=== PATIENT | female | born 2000 | race Caucasian/White ===

== ENCOUNTER 2022-07-20 12:08 | Emergency (ER) | payer OTHER ==
[~2022-07-20] VITALS: Ht 160 cm; Wt 69.0 kg
[2022-07-20 13:27] LABS: BASO # 0.1 10^3/uL (0.0-0.2); BASO % 0.4 % (0.0-1.0); EOS # 0.2 10^3/uL (0.0-0.5); EOS % 1.5 % (0.0-3.0); HEMATOCRIT 35.8 % (36.0-47.0); HEMOGLOBIN 11.6 g/dl (12.0-15.5); LYMPH # 2.7 10^3/uL (1.5-5.0); LYMPH % 24.2 % (24.0-44.0); MEAN CORPUSCULAR HEMOGLOBIN 28.9 pg (27.0-33.0); MEAN CORPUSCULAR HGB CONC 32.4 g/dl (32.0-36.5); MEAN CORPUSCULAR VOLUME 89.1 fl (80.0-96.0); MONO # 0.9 10^3/uL (0.0-0.8); MONO % 8.4 % (2.0-8.0); NEUTROPHILS # 7.3 10^3/uL (1.5-8.5); NEUTROPHILS % 65.2 % (36.0-66.0); PLATELET COUNT, AUTOMATED 233 10^3/uL (150-450); RED BLOOD COUNT 4.02 10^6/uL (4.00-5.40); WHITE BLOOD COUNT 11.2 10^3/uL (4.0-10.0)
[2022-07-20 13:51] LABS: BLOOD UREA NITROGEN 6 MG/DL (9-23); CALCIUM LEVEL 8.9 MG/DL (8.5-10.1); CARBON DIOXIDE LEVEL 22 MMOL/L (20-31); CHLORIDE LEVEL 107 MMOL/L (98-107); GLOMERULAR FILTRATION RATE > 60.0 (>60); GLUCOSE, FASTING 69 MG/DL (60-100); POTASSIUM SERUM 4.4 MMOL/L (3.5-5.1); SODIUM LEVEL 139 MMOL/L (136-145)
[2022-07-20 14:05] LABS: HCG, SERUM QUANTITATIVE 76183.8 MIU/ML (<4.2)
[2022-07-20 15:34] VITALS: BP 116/55
== END 2022-07-20 16:10 | disposition home or self-care (01) ==
LOC: M ED 12:08
DX: O26.891 Other specified pregnancy related conditions, first trimester (principal); N89.9 Noninflammatory disorder of vagina, unspecified; Z3A.11 11 weeks gestation of pregnancy

== ENCOUNTER → 2022-09-10 | Outpatient (CLI) | payer OTHER | LOC: M WHC 09:05 | PROVIDERS: ATTEND Registered Nurse | DX: Z36.3 Encounter for antenatal screening for malformations (principal); Z3A.19 19 weeks gestation of pregnancy ==

== ENCOUNTER 2022-09-18 20:40 | Emergency (ER) | payer OTHER ==
[~2022-09-18] VITALS: Ht 160 cm; Wt 73.1 kg
[2022-09-18 20:42] VITALS: BP 116/60
[2022-09-18 21:32] LABS: APPEARANCE, URINE CLEAR (CLEAR); BILIRUBIN, URINE AUTO NEGATIVE (NEGATIVE); BLOOD, URINE BLOOD NEGATIVE (NEGATIVE); COLOR, URINE STRAW (YELLOW); GLUCOSE, URINE (UA) AUTO NEGATIVE (NEGATIVE); KETONE, URINE AUTO NEGATIVE (NEGATIVE); LEUKOCYTE ESTERASE, URINE AUTO NEGATIVE (NEGATIVE); NITRITE, URINE AUTO NEGATIVE (NEGATIVE); PROTEIN, URINE AUTO NEGATIVE (NEGATIVE); SPECIFIC GRAVITY URINE AUTO 1.003 (1.002-1.035); UROBILINOGEN, URINE AUTO 0.2 mg/dL (0.0-2.0)
[2022-09-18 21:33] LABS: BACTERIA, URINE AUTO NEGATIVE (NEGATIVE); RBC, URINE AUTO 0 /HPF (0-3); SQUAMOUS EPITHELIAL CELL UR AU 1 /HPF (0-6); WBC, URINE AUTO 0 /HPF (0-3)
== END 2022-09-19 02:22 | disposition left against medical advice (07) ==
LOC: M ED 20:40
DX: Z53.21 Procedure and treatment not carried out due to patient leaving prior to being seen by health care provider (principal)

== ENCOUNTER 2022-10-31 20:22 | Outpatient (CLI) | payer OTHER ==
[~2022-10-31] VITALS: Ht 162.6 cm; Wt 78.7 kg
[2022-10-31 20:43] VITALS: BP 120/66
== END 2022-10-31 21:46 | disposition home or self-care (01) ==
LOC: M LDO 20:22
PROVIDERS: ATTEND Obstetrics & Gynecology
DX: O26.892 Other specified pregnancy related conditions, second trimester (principal); R07.81 Pleurodynia; Z3A.26 26 weeks gestation of pregnancy
CPT/HCPCS: 59025; G0463

== ENCOUNTER 2022-11-25 10:00 | Outpatient (CLI) | payer OTHER ==
[~2022-11-25] VITALS: Ht 160 cm; Wt 80.7 kg
[2022-11-25] MEDS ORDERED: DICY20TA20 PO (10:17)
[2022-11-25] MEDS ORDERED: PRENTAB9 PO (10:17)
[2022-11-25] MEDS ORDERED: HOME MED LIST COMPLETE! XX SCH (10:20)
[2022-11-25 10:23] VITALS: BP 114/60
[2022-11-25] MEDS ORDERED: LR 1,000 ML IV ONE (11:00)
[2022-11-25 11:38] LABS: HEMATOCRIT 34.4 % (36.0-47.0); HEMOGLOBIN 10.8 g/dl (12.0-15.5); MEAN CORPUSCULAR HEMOGLOBIN 28.3 pg (27.0-33.0); MEAN CORPUSCULAR HGB CONC 31.4 g/dl (32.0-36.5); MEAN CORPUSCULAR VOLUME 90.1 fl (80.0-96.0); PLATELET COUNT, AUTOMATED 238 10^3/uL (150-450); RED BLOOD COUNT 3.82 10^6/uL (4.00-5.40); WHITE BLOOD COUNT 13.8 10^3/uL (4.0-10.0)
[2022-11-25] MEDS ORDERED: FLUCONAZOLE 50MG TABLET PO ONE (11:55)
[2022-11-25 12:05] LABS: ALBUMIN 2.9 G/DL (3.2-5.2); ALKALINE PHOSPHATASE 113 U/L (46-116); ALT/SGPT 13 U/L (7.0-40); AST/SGOT 19 U/L (<34); BILIRUBIN,TOTAL 0.4 MG/DL (0.3-1.2); BLOOD UREA NITROGEN < 5 MG/DL (9-23); CALCIUM LEVEL 8.2 MG/DL (8.5-10.1); CARBON DIOXIDE LEVEL 23 MMOL/L (20-31); CHLORIDE LEVEL 107 MMOL/L (98-107); CREATININE FOR GFR 0.38 MG/DL (0.55-1.30); GLOMERULAR FILTRATION RATE > 60.0 (>60); GLUCOSE, FASTING 73 MG/DL (60-100); POTASSIUM SERUM 3.9 MMOL/L (3.5-5.1); SODIUM LEVEL 138 MMOL/L (136-145); TOTAL PROTEIN 6.2 G/DL (5.7-8.2)
[2022-11-25 12:14] LABS: APPEARANCE, URINE CLEAR (CLEAR); BACTERIA, URINE AUTO NEGATIVE (NEGATIVE); BILIRUBIN, URINE AUTO NEGATIVE (NEGATIVE); BLOOD, URINE BLOOD NEGATIVE (NEGATIVE); COLOR, URINE STRAW (YELLOW); GLUCOSE, URINE (UA) AUTO NEGATIVE (NEGATIVE); KETONE, URINE AUTO 1+ mg/dL (NEGATIVE); LEUKOCYTE ESTERASE, URINE AUTO NEGATIVE (NEGATIVE); NITRITE, URINE AUTO NEGATIVE (NEGATIVE); PROTEIN, URINE AUTO NEGATIVE (NEGATIVE); RBC, URINE AUTO 0 /HPF (0-3); SPECIFIC GRAVITY URINE AUTO 1.004 (1.002-1.035); SQUAMOUS EPITHELIAL CELL UR AU 0 /HPF (0-6); UROBILINOGEN, URINE AUTO 0.2 mg/dL (0.0-2.0); WBC, URINE AUTO 0 /HPF (0-3)
[2022-11-25 13:36] LABS: GC DNA AMPLIFICATION NEGATIVE (NEGATIVE)
== END 2022-11-25 12:38 | disposition home or self-care (01) ==
LOC: M LDO 10:00
PROVIDERS: ATTEND Obstetrics & Gynecology
DX: O23.593 Infection of other part of genital tract in pregnancy, third trimester (principal); Z3A.30 30 weeks gestation of pregnancy; Z88.2 Allergy status to sulfonamides; Z91.018 Allergy to other foods
CPT/HCPCS: 59025; 80053; 81001; 85027; 87810; 87850; G0463

== ENCOUNTER 2022-12-29 09:55 | Outpatient (CLI) | payer OTHER ==
[~2022-12-29] VITALS: Ht 160 cm; Wt 82.7 kg
[~2022-12-29 09:55] MED LIST: DICY20TA20 PO; PRENTAB9 PO
[2022-12-29] MEDS ORDERED: ACET325C5 PO (10:11)
[2022-12-29 10:15] VITALS: BP 115/65
[2022-12-29] MEDS ORDERED: HOME MED LIST COMPLETE! XX SCH (10:15)
[2022-12-29] MEDS ORDERED: LR 1,000 ML IV ONE (11:00)
[2022-12-29] MEDS ORDERED: ONDANSETRON 4MG 2ML VIAL IV ONE (11:00)
[2022-12-29 11:24] LABS: BASO # 0.1 10^3/uL (0.0-0.2); BASO % 0.3 % (0.0-1.0); EOS % 0.2 % (0.0-3.0); HEMOGLOBIN 10.4 g/dl (12.0-15.5); LYMPH # 2.3 10^3/uL (1.5-5.0); LYMPH % 15.7 % (24.0-44.0); MEAN CORPUSCULAR HEMOGLOBIN 27.1 pg (27.0-33.0); MEAN CORPUSCULAR HGB CONC 31.5 g/dl (32.0-36.5); MEAN CORPUSCULAR VOLUME 85.9 fl (80.0-96.0); MONO % 6.8 % (2.0-8.0); NEUTROPHILS # 11.1 10^3/uL (1.5-8.5); NEUTROPHILS % 76.2 % (36.0-66.0); PLATELET COUNT, AUTOMATED 226 10^3/uL (150-450); RED BLOOD COUNT 3.84 10^6/uL (4.00-5.40); WHITE BLOOD COUNT 14.6 10^3/uL (4.0-10.0)
[2022-12-29 11:28] VITALS: BP 120/69
[2022-12-29 12:00] LABS: ALBUMIN 2.7 G/DL (3.2-5.2); ALKALINE PHOSPHATASE 144 U/L (46-116); ALT/SGPT 9 U/L (7.0-40); AST/SGOT 16 U/L (<34); BILIRUBIN,TOTAL 0.5 MG/DL (0.3-1.2); BLOOD UREA NITROGEN < 5 MG/DL (9-23); CALCIUM LEVEL 7.9 MG/DL (8.5-10.1); CARBON DIOXIDE LEVEL 24 MMOL/L (20-31); CHLORIDE LEVEL 106 MMOL/L (98-107); CREATININE FOR GFR 0.43 MG/DL (0.55-1.30); GLOMERULAR FILTRATION RATE > 60.0 (>60); GLUCOSE, FASTING 74 MG/DL (60-100); SODIUM LEVEL 138 MMOL/L (136-145); TOTAL PROTEIN 5.6 G/DL (5.7-8.2)
[2022-12-29 13:40] VITALS: BP 118/62
== END 2022-12-29 13:55 | disposition home or self-care (01) ==
LOC: M LDO 09:55
PROVIDERS: ATTEND Obstetrics & Gynecology
DX: O99.613 Diseases of the digestive system complicating pregnancy, third trimester (principal); K58.0 Irritable bowel syndrome with diarrhea; O99.013 Anemia complicating pregnancy, third trimester; D64.9 Anemia, unspecified; Z3A.34 34 weeks gestation of pregnancy
CPT/HCPCS: 36415; 59025; 80053; 85025; 96361; 96374; G0463; J2405

== ENCOUNTER 2023-01-21 09:02 | Outpatient (CLI) | payer OTHER ==
[~2023-01-21] VITALS: Ht 160 cm; Wt 83.7 kg
[~2023-01-21 09:02] MED LIST changes: +ACET325C5 PO; +ALBUTEROL SULFATE 2.5MG/0.5ML INH NEB SOLN INH PRN; +EPINEPHrine INJ 1 MG/ML 1ML AMP IM PRN; +diphenhydrAMINE 50MG/ML VIAL IV PRN; +methylPREDNISolone 125MG 2ML VIAL IV PRN
[2023-01-21 09:15] VITALS: BP 121/61; O2SAT 96
[2023-01-21] MEDS ORDERED: IRON SUCROSE 300 MG in NS 250 ML OVER 90 MIN. IV ONE (09:30)
[2023-01-21] MEDS ORDERED: NS 1,000 ML IV SCH (09:30)
[2023-01-21 11:15] VITALS: BP 123/60; O2SAT 97
== END 2023-01-21 11:30 | disposition home or self-care (01) ==
LOC: M INFU 09:02
PROVIDERS: ATTEND Obstetrics & Gynecology
DX: O99.013 Anemia complicating pregnancy, third trimester (principal); F50.89 Other specified eating disorder; Z3A.36 36 weeks gestation of pregnancy; Z88.2 Allergy status to sulfonamides
CPT/HCPCS: 96365; J1756

== ENCOUNTER 2023-01-28 09:48 | Outpatient (CLI) | payer OTHER ==
[~2023-01-28] VITALS: Ht 160 cm; Wt 83.7 kg
[2023-01-28] MEDS ORDERED: IRON SUCROSE 300 MG in NS 250 ML OVER 90 MIN. IV ONE (10:00)
[2023-01-28] MEDS ORDERED: NS 1,000 ML IV SCH (10:00)
[2023-01-28 10:08] VITALS: BP 121/65; O2SAT 97
== END 2023-01-28 11:50 ==
LOC: M INFU 09:48
PROVIDERS: ATTEND Obstetrics & Gynecology
DX: O99.013 Anemia complicating pregnancy, third trimester (principal); O99.343 Other mental disorders complicating pregnancy, third trimester; Z3A.36 36 weeks gestation of pregnancy; Z88.2 Allergy status to sulfonamides
CPT/HCPCS: 96365; 96366; J1756

== ENCOUNTER 2023-01-29 01:35 | Inpatient (IN) | payer OTHER ==
[~2023-01-29] VITALS: Ht 160 cm; Wt 85.0 kg
[2023-01-29] VITALS (31 sets, daily range): BP systolic 89–140; BP diastolic 52–84; TEMP 98.4; O2SAT 94–99
[~2023-01-29 01:35] MED LIST changes: -ALBUTEROL SULFATE 2.5MG/0.5ML INH NEB SOLN INH PRN; -EPINEPHrine INJ 1 MG/ML 1ML AMP IM PRN; -diphenhydrAMINE 50MG/ML VIAL IV PRN; -methylPREDNISolone 125MG 2ML VIAL IV PRN
[2023-01-29] MEDS ORDERED: LR 1,000 ML IV SCH ×2 (02:05→17:35)
[2023-01-29] MEDS ORDERED: LR 1,000 ML IV ONE (02:05)
[2023-01-29] MEDS ORDERED: PENICILLIN G POTASSIUM 5 MU IV 5 MU in D5W MINI-BAG PLUS 100 ML IV STA (02:10)
[2023-01-29] MEDS ORDERED: LIDOCAINE 1% MDV 20ML VIAL INFIL PRN (02:20)
[2023-01-29] MEDS ORDERED: OXYTOCIN DRIP 30 UNITS in IV 1 EA IV PRN ×5 (02:20→15:10)
[2023-01-29] MEDS ORDERED: TRANEXAMIC ACID INJection 1,000 MG in NS 100 ML IV PRN ×2 (02:20→15:10)
[2023-01-29] MEDS ORDERED: METHYLERGONOVINE MALEATE 0.2MG/ML 1ML VIAL IM PRN (02:20)
[2023-01-29 02:23] LABS: HEMATOCRIT 35.3 % (36.0-47.0); HEMOGLOBIN 11.2 g/dl (12.0-15.5); MEAN CORPUSCULAR HEMOGLOBIN 26.5 pg (27.0-33.0); MEAN CORPUSCULAR HGB CONC 31.7 g/dl (32.0-36.5); MEAN CORPUSCULAR VOLUME 83.5 fl (80.0-96.0); PLATELET COUNT, AUTOMATED 256 10^3/uL (150-450); RED BLOOD COUNT 4.23 10^6/uL (4.00-5.40); WHITE BLOOD COUNT 13.9 10^3/uL (4.0-10.0)
[2023-01-29] MEDS ORDERED: NALOXONE INJ 0.4MG/1ML VIAL IV PRN ×3 (03:05→17:35)
[2023-01-29] MEDS ORDERED: FENTANYL/ROPIVACAINE/NACL BAG 100 ML EPIDURAL SCH (03:05)
[2023-01-29] MEDS ORDERED: ONDANSETRON 4MG 2ML VIAL IV PRN ×2 (03:05→17:35)
[2023-01-29] MEDS ORDERED: ePHEDrine SULFATE 25 MG/5 ML(5MG/ML) SYRINGE IVP PRN (03:05)
[2023-01-29] MEDS ORDERED: LR 500 ML IV PRN (03:05)
[2023-01-29] MEDS ORDERED: diphenhydrAMINE 50MG/ML VIAL IV PRN ×2 (03:05→17:35)
[2023-01-29] MEDS ORDERED: EPIDURAL/PCA KEYS XX PRN (03:05)
[2023-01-29] MEDS: LR 1,000 ML IV SCH ×3 (03:14→13:21)
[2023-01-29] MEDS: PEN G POT 3,000,000 UNIT/50 ML 3,000,000 UNIT in IV 1 EA IV SCH ×2 (06:23→10:25)
[2023-01-29] MEDS ORDERED: HOME MED LIST COMPLETE! XX SCH (11:45)
[2023-01-29] MEDS ORDERED: OXYTOCIN DRIP 30 UNITS in IV 1 EA IV SCH (13:00)
[2023-01-29] MEDS ORDERED: LIDOCAINE 2% W/EPINEPHRINE 20ML VIAL **PRES FREE As Ordered ONE (15:07)
[2023-01-29] MEDS ORDERED: OXYTOCIN 30UNITS IN 0.9% NaCl 500ML IV BAG As Ordered ONE ×2 (15:07→16:04)
[2023-01-29] MEDS ORDERED: MORPHINE PRES-FREE INJ 10 MG/10 ML VIAL As Ordered ONE (15:07)
[2023-01-29] MEDS ORDERED: LACTATED RINGER'S 1000 ML IV STA (15:07)
[2023-01-29] MEDS ORDERED: BICITRA 30ML SOLN UDC PO ONE (15:10)
[2023-01-29] MEDS ORDERED: CARBOPROST TROMETHAMINE 250 MCG/ML AMP IM PRN (15:10)
[2023-01-29] MEDS ORDERED: ceFAZolin SOD 2 GM in IV 1 EA IV ONE (15:10)
[2023-01-29] MEDS ORDERED: AZITHROMYCIN INJ 500 MG, VIAL MATE ADAPTER 1 EACH in NS 250 ML IV ONE (15:10)
[2023-01-29] MEDS ORDERED: KETAMINE HCL 200MG/20ML VIAL As Ordered ONE (15:41)
[2023-01-29] MEDS ORDERED: MIDAZOLAM INJ 2MG/2ML VIAL As Ordered ONE (15:42)
[2023-01-29] MEDS ORDERED: fentaNYL 100 MCG/2 ML INJECTION As Ordered ONE (15:42)
[2023-01-29] MEDS ORDERED: ONDANSETRON 4MG 2ML VIAL As Ordered ONE (15:46)
[2023-01-29] MEDS ORDERED: OXYTOCIN INJ 10UNITS/ML 1ML VIAL As Ordered ONE (15:50)
[2023-01-29] MEDS ORDERED: PHENYLephrine 500MCG 5ML (100MCG/ML) SYRINGE As Ordered ONE (15:54)
[2023-01-29] MEDS ORDERED: ACETAMINOPHEN 1000MG 100ML IV BAG As Ordered ONE (15:56)
[2023-01-29 15:59] LABS: CORD GAS ABE A -2.3; CORD GAS ABE V -4.1; CORD GAS HCO3 A 25.3 MMOL/L; CORD GAS HCO3 V 20.9 MMOL/L; CORD GAS O2 SAT A 32.4 %; CORD GAS O2 SAT V 90.9 %; CORD GAS PCO2 A 53.9 mmHg; CORD GAS PCO2 V 38.5 mmHg; CORD GAS PH A 7.29 UNITS; CORD GAS PH V 7.353 UNITS; CORD GAS PO2 A 16.2 mmHg; CORD GAS PO2 V 45.2 mmHg; CORD GAS SBC A 20.9 MMOL/L; CORD GAS TCO2 V 22.1 MMOL/L
[2023-01-29] MEDS ORDERED: METHYLERGONOVINE MALEATE 0.2MG/ML 1ML VIAL ONE (16:51)
[2023-01-29] MEDS ORDERED: RHOGAM 300MCG (1500IU) INJ IM SCH (17:10)
[2023-01-29] MEDS ORDERED: ACETAMINOPHEN 500 MG TAB PO PRN (17:10)
[2023-01-29] MEDS ORDERED: ANUSOL HC CREAM 30GM TOP PRN (17:10)
[2023-01-29] MEDS ORDERED: MORPHINE 2 MG/ML 1ML VIAL IV PRN (17:10)
[2023-01-29] MEDS ORDERED: SIMETHICONE 80MG CHEW TAB PO PRN (17:10)
[2023-01-29] MEDS ORDERED: METHYLERGONOVINE MALEATE 0.2 MG TAB PO PRN (17:10)
[2023-01-29] MEDS ORDERED: oxyCODONE 5MG TAB PO PRN ×3 (17:10→17:35)
[2023-01-29] MEDS: SLF 3 ML SYR IV SCH (17:35)
[2023-01-29] MEDS ORDERED: **NOTE PATIENT COMMENT** MISC XX SCH (17:35)
[2023-01-29] MEDS ORDERED: METOCLOPRAMIDE INJ 10MG/2ML VIAL IV PRN ×2 (17:35)
[2023-01-29] MEDS ORDERED: fentaNYL 100 MCG/2 ML INJECTION IV PRN (17:35)
[2023-01-29] MEDS ORDERED: KETOROLAC 30 MG/ML 1ML VIAL As Ordered ONE (17:53)
[2023-01-29] MEDS: KETOROLAC 30 MG/ML 1ML VIAL IV SCH ×2 (18:00→23:45)
[2023-01-29 20:40] LABS: BASO # 0.1 10^3/uL (0.0-0.2); BASO % 0.2 % (0.0-1.0); HEMATOCRIT 30.7 % (36.0-47.0); HEMOGLOBIN 9.9 g/dl (12.0-15.5); LYMPH % 3.2 % (24.0-44.0); MEAN CORPUSCULAR HGB CONC 32.2 g/dl (32.0-36.5); MEAN CORPUSCULAR VOLUME 83.9 fl (80.0-96.0); MONO # 1.5 10^3/uL (0.0-0.8); NEUTROPHILS # 27.2 10^3/uL (1.5-8.5); NEUTROPHILS % 90.9 % (36.0-66.0); PLATELET COUNT, AUTOMATED 208 10^3/uL (150-450); RED BLOOD COUNT 3.66 10^6/uL (4.00-5.40); WHITE BLOOD COUNT 29.9 10^3/uL (4.0-10.0)
[2023-01-29] MEDS: DOCUSATE SODIUM 100MG CAPSULE PO SCH (20:47)
[2023-01-30] MEDS: SLF 3 ML SYR IV SCH ×2 (00:39→09:35)
[2023-01-30 02:00] VITALS: BP 103/53; O2SAT 96
[2023-01-30] MEDS: KETOROLAC 30 MG/ML 1ML VIAL IV SCH ×2 (05:50→12:11)
[2023-01-30] MEDS: LR 1,000 ML IV SCH (05:50)
[2023-01-30 06:00] VITALS: BP 99/53; O2SAT 96
[2023-01-30 06:52] LABS: HEMATOCRIT 27.6 % (36.0-47.0); HEMOGLOBIN 8.8 g/dl (12.0-15.5); MEAN CORPUSCULAR HEMOGLOBIN 26.8 pg (27.0-33.0); MEAN CORPUSCULAR HGB CONC 31.9 g/dl (32.0-36.5); MEAN CORPUSCULAR VOLUME 84.1 fl (80.0-96.0); PLATELET COUNT, AUTOMATED 200 10^3/uL (150-450); RED BLOOD COUNT 3.28 10^6/uL (4.00-5.40); WHITE BLOOD COUNT 23.1 10^3/uL (4.0-10.0)
[2023-01-30] MEDS: PRENATAL VITAMINS CHEWABLE TABLET PO SCH (08:46)
[2023-01-30] MEDS: DOCUSATE SODIUM 100MG CAPSULE PO SCH ×2 (08:46→19:58)
[2023-01-30 10:00] VITALS: BP 96/52; O2SAT 100
[2023-01-30] MEDS: ENOXAPARIN 40MG/0.4ML SYRINGE (J1650 PER 10MG) SC SCH (11:04)
[2023-01-30 14:00] VITALS: BP 109/59; O2SAT 96
[2023-01-30 18:00] VITALS: BP 118/61; O2SAT 100
[2023-01-30] MEDS: IBUPROFEN 800 MG TAB PO SCH (19:59)
[2023-01-30 22:00] VITALS: BP 120/59; O2SAT 98
[2023-01-31 02:00] VITALS: BP 109/56; O2SAT 99
[2023-01-31] MEDS: IBUPROFEN 800 MG TAB PO SCH (03:34)
[2023-01-31 06:00] VITALS: BP 105/55; O2SAT 97
[2023-01-31] MEDS ORDERED: MEASLES,MUMPS,RUBELLA VACCINE INJ (MMR-II) SC.IMMUN ONE (09:00)
[2023-01-31] MEDS: ENOXAPARIN 40MG/0.4ML SYRINGE (J1650 PER 10MG) SC SCH (09:29)
[2023-01-31] MEDS: PRENATAL VITAMINS CHEWABLE TABLET PO SCH (09:29)
[2023-01-31] MEDS: DOCUSATE SODIUM 100MG CAPSULE PO SCH (09:29)
[2023-01-31 09:56] VITALS: BP 109/60; O2SAT 95
== END 2023-01-31 11:13 | disposition home or self-care (01) | DRG 773 ==
LOC: M LDO 01:35 → M LDI 02:18 → M OBS 18:36
PROVIDERS: ADMIT Obstetrics & Gynecology; ATTEND Obstetrics & Gynecology
PROC: 10D00Z1 Extraction of Products of Conception, Low, Open Approach (ICD-10-PCS; principal; 2023-01-29 16:00)
DX: O99.02 Anemia complicating childbirth (principal); O99.824 Streptococcus B carrier state complicating childbirth; Z88.2 Allergy status to sulfonamides; Z91.018 Allergy to other foods; K58.9 Irritable bowel syndrome, unspecified; O99.62 Diseases of the digestive system complicating childbirth; O64.0XX0 Obstructed labor due to incomplete rotation of fetal head, not applicable or unspecified; Z37.0 Single live birth; Z3A.39 39 weeks gestation of pregnancy